=== PATIENT | male | born 1980 | race Caucasian/White ===

== ENCOUNTER 2019-11-26 11:02 | Outpatient (CLI) | payer MEDICAID, SELFPAY ==
--- NOTE | 2019-11-26 10:25 | DI.RAD_ITS ---
EXAM: XR KNEE RT 3V AP,LAT,HARPER CLINICAL HISTORY: rt knee pain. TECHNIQUE: 2D digital imaging was performed. COMPARISON: No exams were available for comparison FINDINGS: BONES: No acute fracture is present. No bony destructive lesion is seen. JOINTS: The knee is normally aligned. Moderate joint effusion. Mild degenerative changes of the righ t knee characterized by joint space narrowing and periarticular spurring. The findings are most fatou ed in the medial femoral tibial joint and the patellofemoral joint. SOFT TISSUE: Normal. IMPRESSION: Mild degenerative changes of the right knee. DATA REPOSITORY: RADIATION DOSE DELIVERED:
== END 2019-11-26 11:22 ==
PROVIDERS: PCP Family Medicine; Referring Provider Family Medicine; Visit Provider Physician Assistant Surgical
DX: M17.11 Unilateral primary osteoarthritis, right knee (principal)
CPT/HCPCS: 73562

== ENCOUNTER 2021-06-08 11:40 | Outpatient (CLI) | payer MEDICAID, SELFPAY ==
--- NOTE | 2021-06-08 11:39 | DI.RAD_ITS ---
Exam(s) XR KNEE RT 3V AP,LAT,HARPER EXAM: XR KNEE RT 3V AP,LAT,HARPER CLINICAL HISTORY: right knee pain. TECHNIQUE: 2D digital imaging was performed. COMPARISON: CR XR KNEE RT 3V AP,LAT,HARPER from 11/26/2019 FINDINGS: 3 views There is no evidence of fracture. Small amount of increased joint fluid noted. There is moderate narrowing of the medial compartment, similar to the previous study. Lateral compar tment unremarkable. Mild degenerative changes in the patellofemoral compartment medial aspect. No ominous osseous lesions evident. IMPRESSION: Moderate-advanced degenerative changes in the medial compartment unchanged from 11/26/2019 DATA REPOSITORY: RADIATION DOSE DELIVERED:
--- OUTSIDE RECORDS SUMMARY | 2021-06-08 11:43 | XMS_ITS | CCD ---
:1980 Author Care Team Providers Name Role Phone BRANDI STRATTON, Bridget Attending Physician Unavailable Christian PASCUAL MD Er Physician 1 Unavailable Bridget VARGAS MD Rounding (Secondary) Physician Unavailab le Vital Signs Vital Sign Value Unit Date/Time Recent/Initial? BP Systolic 110 mmHg 09/19/2020 17:39 Initial VS BP Diastolic 63 mmHg 09/19/2020 17:39 Initial VS Respiratory Rate 20 bpm 09/19/2020 17:39 Initial VS Heart Rate 54 bpm 09/19/2020 17:39 Initial VS O2 % BldC Oximetry 96 % 09/19/2020 17:39 Initi al VS Body Temperature 36.3 degrees 09/19/2020 17:39 Initial VS BP Systolic 105 mmHg 09/20/2020 07:44 Most Recent VS BP Diastolic 67 mmHg 09/20/2020 07:44 Most Recent VS Respiratory Rate 20 bpm 09/20/2020 07:44 Most Re cent VS Heart Rate 54 bpm 09/20/2020 07:44 Most Recent VS O2 % BldC Oximetry 97 % 09/20/2020 07:44 Most Recent VS Body Temperature 36.3 degrees 09/20/2020 07:44 Most Re cent VS Allergies Allergy Code Allergy Type Reaction Status VICODIN {Deactivated Allergy} 0 Drug allergy ITCHING Active Procedures Procedure Code Procedure Type Date CULT WOUND CULTURE [id number] SNOMED CT 09/18/2020 History of Immunizations Unknown or Not Available. Problems Unknown or Not Available. Results BASIC METABOLIC PANEL (BMP) - Collect Da te/Time: 09/20/2020 07:27 Test Name Code Test Result Test Units Test Ref Range GLUCOSE 2345-7 89 mg/dL L=70 H=11 6 BUN 3094-0 10 mg/dL L=6 H=25 CREATININE 2160-0 0.86 mg/dL L=0.67 H=1.17 SODIUM SERUM 2951-2 140 mmol/L L=136 H=14 5 POTASSIUM SERUM 2823-3 4.1 mmol/L L=3.4 H =5.2 CHLORIDE SERUM 2075-0 105 mmol/L L=96 H= 110 CARBON DIOXIDE (CO2) 2028-9 24 mmol/L L=22 H=34 ANION GAP 57121-6 11.4 mmol/L CALCIUM SERUM 81926-7 8.3 mg/dL L=8.2 H=10.2 AGE 40 years eGFR (non-Afr.Amer.) 37135-2 98 mL/min eGFR (Afr-[place]) 25394-6 119 mL/min BASIC METABOLIC PANEL (BMP) - Collect Da te/Time: 09/18/2020 20:25 Test Name Code Test Result Test Units Test Ref Range GLUCOSE 2345-7 139 mg/dL L=70 H=11 6 BUN 3094-0 12 mg/dL L=6 H=25 CREATININE 2160-0 1.00 mg/dL L=0.67 H=1.17 SODIUM SERUM 2951-2 137 mmol/L L=136 H=14 5 POTASSIUM SERUM 2823-3 4.2 mmol/L L=3.4 H =5.2 CHLORIDE SERUM 2075-0 101 mmol/L L=96 H= 110 CARBON DIOXIDE (CO2) 2028-9 27 mmol/L L=22 H=34 ANION GAP 59652-5 8.8 mmol/L CALCIUM SERUM 21861-6 9.3 mg/dL L=8.2 H=10.2 AGE 40 years eGFR (non-Afr.Amer.) 48408-8 82 mL/min eGFR (Afr-[place]) 74782-1 100 mL/min C REACTIVE PROTEIN HIGH SENSITIVITY - Co llect Date/Time: 09/18/2020 20:25 Test Name Code Test Result Test Units Test Ref Range CRP-HIGH SENS. 57402-1 137.15 mg/L L=0.00 H= 3.00 CRP-HIGH SENS 06222-9 13.72 mg/dL L=0.00 H=0 .30 CBC W/ DIFFERENTIAL - Collect Date/Time: 09/20/2020 07:27 Test Name Code Test Result Test Units Test Ref Range WBC 6690-2 9.24 th/cmm L=5.00 H=10.00 NEUT % 71.9 % L=40.0 H=80.0 LYMPH % 19.6 % L=10.0 H=50.0 MONO % 73113-7 5.7 % L=2.0 H=12.0 EOS % 1.6 % L=0.0 H=8. 0 BASO % 0.8 % L=0.0 H=3. 0 IG % 2514-8 0.4 % L=0.0 H=1. 1 NRBC % 25001-5 0.0 % L=0.0 H=0. 0 NEUT abs count 751-8 6.6 th/cmm L=1.6 H= 8.4 LYMPH abs count 731-0 1.8 th/cmm L=1.5 H =4.0 MONO abs count 742-7 0.5 th/cmm L=0.2 H= 1.0 EOS abs count 711-2 0.2 th/cmm L=0.0 H=0 .5 BASO abs count 704-7 0.1 th/cmm L=0.0 H= 0.2 IG abs count 67402-9 0.0 th/cmm L=0.0 H=0. 1 NRBC abs count 66083-3 0.0 mil/cmm L=0.0 H= 0.0 RBC 789-8 4.06 mil/cmm L=4.30 H=6.20 HEMOGLOBIN 718-7 11.3 gm/dL L=13.0 H=17.0 HEMATOCRIT 4544-3 35 % L=45 H=52 MCV 787-2 86 fL L=82 H=92 MCH 785-6 27.8 pg L=27.0 H=31.0 MCHC 786-4 32.3 % L=32.0 H=36.0 RDW-SD 788-0 41.2 fL L=39.0 H=49.0 PLATELET COUNT 777-3 317 th/cmm L=150 H= 450 CBC W/ DIFFERENTIAL - Collect Date/Time: 09/19/2020 09:06 Test Name Code Test Result Test Units Test Ref Range WBC 6690-2 16.93 th/cmm L=5.00 H=10.00 NEUT % 78.8 % L=40.0 H=80.0 LYMPH % 13.2 % L=10.0 H=50.0 MONO % 06644-3 6.4 % L=2.0 H=12.0 EOS % 0.8 % L=0.0 H=8. 0 BASO % 0.4 % L=0.0 H=3. 0 IG % 2514-8 0.4 % L=0.0 H=1. 1 NRBC % 02733-1 0.0 % L=0.0 H=0. 0 NEUT abs count 751-8 13.4 th/cmm L=1.6 H= 8.4 LYMPH abs count 731-0 2.2 th/cmm L=1.5 H =4.0 MONO abs count 742-7 1.1 th/cmm L=0.2 H= 1.0 EOS abs count 711-2 0.1 th/cmm L=0.0 H=0 .5 BASO abs count 704-7 0.1 th/cmm L=0.0 H= 0.2 IG abs count 90145-5 0.1 th/cmm L=0.0 H=0. 1 NRBC abs count 96147-5 0.0 mil/cmm L=0.0 H= 0.0 RBC 789-8 4.06 mil/cmm L=4.30 H=6.20 HEMOGLOBIN 718-7 11.5 gm/dL L=13.0 H=17.0 HEMATOCRIT 4544-3 35 % L=45 H=52 MCV 787-2 86 fL L=82 H=92 MCH 785-6 28.3 pg L=27.0 H=31.0 MCHC 786-4 33.1 % L=32.0 H=36.0 RDW-SD 788-0 41.4 fL L=39.0 H=49.0 PLATELET COUNT 777-3 315 th/cmm L=150 H= 450 CBC W/ DIFFERENTIAL - Collect Date/Time: 09/18/2020 20:25 Test Name Code Test Result Test Units Test Ref Range WBC 6690-2 19.47 th/cmm L=5.00 H=10.00 NEUT % 87.6 % L=40.0 H=80.0 LYMPH % 7.1 % L=10.0 H=50.0 MONO % 96087-6 4.0 % L=2.0 H=12.0 EOS % 0.4 % L=0.0 H=8. 0 BASO % 0.4 % L=0.0 H=3. 0 IG % 2514-8 0.5 % L=0.0 H=1. 1 NRBC % 75575-4 0.0 % L=0.0 H=0. 0 NEUT abs count 751-8 17.1 th/cmm L=1.6 H= 8.4 LYMPH abs count 731-0 1.4 th/cmm L=1.5 H =4.0 MONO abs count 742-7 0.8 th/cmm L=0.2 H= 1.0 EOS abs count 711-2 0.1 th/cmm L=0.0 H=0 .5 BASO abs count 704-7 0.1 th/cmm L=0.0 H= 0.2 IG abs count 51196-2 0.1 th/cmm L=0.0 H=0. 1 NRBC abs count 43294-7 0.0 mil/cmm L=0.0 H= 0.0 RBC 789-8 4.55 mil/cmm L=4.30 H=6.20 HEMOGLOBIN 718-7 12.7 gm/dL L=13.0 H=17.0 HEMATOCRIT 4544-3 39 % L=45 H=52 MCV 787-2 86 fL L=82 H=92 MCH 785-6 27.9 pg L=27.0 H=31.0 MCHC 786-4 32.4 % L=32.0 H=36.0 RDW-SD 788-0 42.3 fL L=39.0 H=49.0 PLATELET COUNT 777-3 405 th/cmm L=150 H= 450 SED RATE - Collect Date/Time: 09/18/2020 20:25 Test Name Code Test Result Test Units Test Ref Range SED. RATE 4537-7 22 mm/hr L=0 H=15 ANSHUL COVID RHEONIX - Collect Date/Time : 09/18/2020 22:56 Test Name Code Test Result Test Units Test Ref Range SOURCE= Nasopharyngeal N/A Tier- INPATIENT/ED N/A SARS COV2 RNA: 24036-4 NEGATIVE N/A REFERENCE RAN GE: NEGAT GRAM STAIN - Collect Date/Time: 09/19/19 23:12 Test Name Code Test Result Test Units Test Ref Range SOURCE- Other N/A WBC s few N/A PREDOMINANT ORGANISM No bacteria seen N/A Active Medications Medications Administered During Visit Medication Dose Units Frequency Route Date/Time of Last Dose ACETAMINOPHEN INJ Q6H 021 SDV: 1000MG/100ML 08:35 CLINDAMYCIN IVPB Q8H 09/21/19 21 PREMIX: 900MG/50ML 05:34 POTASSIUM CHL IN CONT 09/20/19 21 D5%-1/2NS: 23:09 20mEq/1000ML OxyCODONE TABLET no 10 MG PRN Q3H PO 08/25 apap added: 5mg 13:07 IBUPROFEN TABLET: 600 MG PRN Q6H PO 021 600MG 08:35 PANTOPRAZOLE INJ SDV: 40 MG DAILY IVP 40MG 08:35 NICOTINE INHALER 1 CARTRIDGE PRN Q2H INH 09/21/19 21 CARTRIDGE: 10MG 11:07 METHYLPHENIDATE TAB: 20 MG TID PO 08/25 20MG 13:07 CLINDAMYCIN CAPSULE: 300 MG X1 PO 08/25 150MG 13:51 Encounters Encounter Diagnosis Diagnosis Code Start Date Cutaneous abscess of right upper limb [id number] Social History Smoking Status Code Start Date End Date Current every day smoker [id number] Patient Decision Aids Patient Decision Aid Abscess Patient Portal Access Discharge Instructions You were admitted to [facility] on 09/19/2020 09:56 with a principal diagnosis of Cutaneous abscess of right upper limb You had the following tests done: BASIC METABOLIC PANEL (BMP) CBC W/ DIFFERENTIAL CBC W/ DI FFERENTIAL GRAM STAIN [facility] RHEONIX BASIC META BOLIC PANEL (BMP) C REACTIVE PROTEIN HIGH SENSITIVITY CBC W/ DIFFERE NTIAL SED RATE You were discharged from [facility] on 09/20/2020 14:03 Should you have any questions prior to d ischarge, please contact a member of your healthcare team. If you have left the ho spital and have any questions, please contact your primary care physician. Chief Complaint and Reason For Visit Chief Complaint Date of Onset RIGHT ARM ABSCESS 09/19/2020 Function Status Unknown or Not Available. Plan of Care Unknown or Not Available. Referral/Transition of Care Unknown or Not Available.
== END 2021-06-08 11:41 | disposition home or self-care (01) ==
LOC: DIORS 11:40
PROVIDERS: PCP Family Medicine; Visit Provider Student in an Organized Health Care Education/Training Program
DX: M25.561 Pain in right knee (principal); M25.461 Effusion, right knee; M17.11 Unilateral primary osteoarthritis, right knee
CPT/HCPCS: 73562

== ENCOUNTER 2021-06-22 01:42 | Outpatient (CLI) | payer MEDICAID, SELFPAY ==
--- NOTE | 2021-06-22 07:00 | DI.MRI_ITS ---
Exam(s) MR LOWER JOINT RT WO EXAM: MR LOWER JOINT RT WO CLINICAL HISTORY: PAIN M23.91 INTERNAL DERANGEMENT RT KNEE S83.411A SPRAIN M17.11 TECHNIQUE: Multiplanar multisequence MRI was performed.. COMPARISON: MR MRI R LOWER JOINT WO CONT from 04/04/2016 FINDINGS: MR examination of the knee was performed according to the usual protocol. There is a small knee joint effusion. There is a small ganglion cyst associated with the popliteus m uscle and tendon. There are areas of mildly abnormal bony signal in medial femoral condyle and medial tibial plateau, n onspecific. No other significant bony signal abnormality seen.. Medial tibiofemoral joint: The articular cartilage of the femur and tibia appears markedly thinned. The medial meniscus is deficient consistent with a chronic tear. No gross bucket-handle lesion ident ified. Grade 3 medial collateral ligament injury seen.. Lateral tibiofemoral joint: The articular cartilage of the femur and tibia appears well maintained. The meniscus and attachments appear intact. The lateral collateral ligament complex and posterolater al corner structures appear intact. There is an apparent ganglion cyst extending along the region of the popliteus myotendinous junction. Patellofemoral joint and extensor mechanism: The articular cartilage of the patellofemoral joint appe ars intact. The superior and inferior patellar fat pads appear normal with no signal abnormality. The quadriceps tendon and patellar tendon appear intact with no evidence of a tear or significant grady ma. The medial and lateral retinacula appear intact. Cruciate ligaments: There is markedly abnormal signal of the ACL with some apparent tearing present a t the femoral attachment. Findings are consistent with a partial tear. Posterior cruciate ligament is unremarkable in appearance.. Tibiofibular joint: No specific abnormality involving the tibiofibular joint. IMPRESSION: Severe degenerative changes of the medial tibiofemoral joint and presumed chronic medial meniscus tea r with marked meniscal deficiency. There is an associated grade 3 MCL injury. There is a probable partial thickness ACL tear at the femoral attachment. DATA REPOSITORY:
== END 2021-06-22 02:02 ==
PROVIDERS: PCP Family Medicine; Visit Provider Student in an Organized Health Care Education/Training Program
DX: M17.11 Unilateral primary osteoarthritis, right knee (principal); S83.411A Sprain of medial collateral ligament of right knee, initial encounter
CPT/HCPCS: 73721

== ENCOUNTER 2021-06-29 11:16 | Outpatient (CLI) | payer MEDICAID, SELFPAY ==
--- NOTE | 2021-06-29 10:15 | DI.RAD_ITS ---
Exam(s) XR STANDING ALIGNMENT EXAM: XR STANDING ALIGNMENT CLINICAL HISTORY: internal derangement R KNEE. TECHNIQUE: 2D digital imaging was performed. COMPARISON: MR MR LOWER JOINT RT WO from 06/22/2021 FINDINGS: Total four views Both hip joints appear unremarkable. At the level the knees there is asymmetric narrowing of the medial compartment of the right knee with relative preservation of height of the lateral compartment. Both medial lateral compartments of the opposite-left knee appear unremarkable. The level of the ankles there are multiple screws in the proximal left foot bones. IMPRESSION: DATA REPOSITORY: RADIATION DOSE DELIVERED:
== END 2021-06-29 11:17 | disposition home or self-care (01) ==
LOC: DIORS 11:16
PROVIDERS: Visit Provider Student in an Organized Health Care Education/Training Program
DX: M23.8X1 Other internal derangements of right knee (principal); M25.861 Other specified joint disorders, right knee
CPT/HCPCS: 77073

== ENCOUNTER 2021-07-03 18:37 | Emergency (ER) | payer MEDICAID, SELFPAY ==
[2021-07-03 18:41] VITALS: BP 129/87; PULSE 100; RESP 20; TEMP 37.2; O2SAT 100
--- NOTE | 2021-07-03 18:45 | DI.RAD_ITS ---
Exam(s) XR ELBOW RT COMPLETE EXAM: XR ELBOW RT COMPLETE CLINICAL HISTORY: Swelling, ? FB. TECHNIQUE: 2D digital imaging was performed. COMPARISON: No exams were available for comparison three views. FINDINGS: BONES: No acute fracture is present. No bony destructive lesion is seen. JOINTS: The elbow is normally aligned. No joint effusion is seen. SOFT TISSUE: Intravenous catheter noted in the antecubital fossa. 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 No visible foreign body. No abnormal gas collection. IMPRESSION: Marked soft tissue swelling. No evidence of foreign body or fracture. DATA REPOSITORY: RADIATION DOSE DELIVERED:
--- NOTE | 2021-07-03 18:45 | DI.RAD_ITS ---
Exam(s) XR HAND LT COMPLETE EXAM: XR HAND LT COMPLETE CLINICAL HISTORY: swelling, erythema, ? FB. TECHNIQUE: 2D digital imaging was performed. Three views. COMPARISON: CR LEFT WRIST COMPLETE from 10/15/2013 FINDINGS: A fixation plate is again noted along the dorsum of the wrist for carpal fusion. There is posterior soft tissue swelling. No fracture or dislocation. IMPRESSION: No acute abnormality. DATA REPOSITORY: RADIATION DOSE DELIVERED:
--- NOTE | 2021-07-03 18:52 | W.ED.GENAD ---
Discharge Plan Disposition Patient Disposition: SHEILA ABDUL ([facility]) Condition: Serious Discharge Details Clinical Impression: Cellulitis of finger of left hand, Abscess of right elbow, Sepsis Primary Care Provider: None,None ED Provider: Branden Marino Home Meds and New Rx's Prescriptions: No Action acetaminophen [Mapap Extra Strength] 500 MG tablet 1,000 mg PO PRN PRN0RF ibuprofen 200 MG tablet 400 mg PO PRN PRN0RF methylphenidate HCl 20 MG tablet extended release 20 mg PO TID 0RF Medical Decision Making This is a 41-year-old male who presents with swelling and erythema of his left hand, predominantly over the long finger, as well as the right elbow. 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 He does have a history of previous drug use but denies to me skin popping or any needle use. States he is no longer using illicit drugs. On exam patient has a pulse of 100 but is afebrile and with normal blood pressure. He has an area of fluctuance overlying the proximal right forearm just distal to his elbow and fairly impressive erythema and swelling of the left hand, most focused on the long finger which is fusiformly swollen and tender with passive range of motion. Dr. Marino's documentation: 8:15 PM Patient was signed out to me by Dr. Daren Zamarripa, please refer to his HPI, physical exam assessment and plan. At time of signout we were waiting on labs and imaging. Immediately after signout I did go and assessed the patient myself, exam demonstrates notably discolored middle finger, with erythema over the dorsal surface, which seems to extend proximally all the way up the arm following a vascular pattern. No erythema on the palmar surface of the hand. Middle finger on the left hand demonstrates fusiform swelling throughout, notable discoloration with a combination of erythema, intermittent pallor, and some aspects that are violaceous in color. Finger is notably tender to both passive flexion and extension, it seems to be pretty equivalent for both directions. I am able to extend the finger by about 5 degrees before the pain becomes intolerable. Well there is certainly concerning components for an extensor tenosynovitis, as well as a flexor tenosynovitis, I feel that extensor may be a little bit more likely however it seems to be notably pronounced with the extension of his arm. We will immediately start antibiotics of vancomycin and ceftriaxone, pain medications, we will reach out to orthopedics for potential admission and surgical management. Unfortunately we have no current beds available at this time. 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 9:17 PM Contacted [facility] and they have no beds available at this time. They recommend transfer to [facility]. Did speak with orthopedics, Dr. Ley, and after discussion of the case he recommends transfer to the [facility] for evaluation in the emergency department for discussion of potential immediate surgical intervention versus just observation. 9:45 PM Discussed the case with emergency physician Dr. Marco Tovar, he agrees with the assessment and plan. Patient will be transferred to the [facility] ED for evaluation as soon as transportation team is available. In the meantime I did perform an incision and drainage of the patient's right elbow. The area was anesthetized and cleaned, it was incised with an 11 blade scalpel, 10 to 15 cc of purulent material was easily removed after initial incision. It was then packed with iodoform gauze. Patient tolerated this well. Patient's tetanus was updated in 2018. Repeat assessment continues to show pain in the middle finger on the left hand. Sensation remains intact though. And still very concerned about the finger, do feel that it still requires emergent orthopedic evaluation for potential surgical intervention if indicated. I have extensively reviewed the treatment plan with the patient. I have addressed all patient concerns at this time. I have also discussed the plan with the admitting physician and they agree with the current assessment and plan and have agreed to assume responsibility for the patient. All parties demonstrate verbal understanding and agreement with our assessment and plan at this time. The documentation in this chart was dictated using Riidr dictation software. Please excuse any dictation errors. At time of transfer the patient was reassessed and continued to demonstrate current medical stability. No signs of acute respiratory distress requiring intubation, hemodynamic instability requiring pressor support, or rapidly declining mental status. The patient is stable for transport. FINDINGS: Bones/joints: No acute fracture or subluxation. No focal osseous erosion. Soft tissues: Swelling posterior and medial to the elbow with no joint effusion. No radiopaque foreign body. IMPRESSION: Swelling posterior and medial to the elbow with no joint effusion. No radiopaque foreign body. Thank you for allowing us to participate in the care of your patient. Dictated and Authenticated by: Sandra Ruiz MD 07/03/2021 8:36 PM Eastern Time ([place]) FINDINGS: Bones/joints: Plate and screw fixation the distal radius extending across the radial carpal bones and across the 3rd metacarpal with chronic appearing ankylosis. Hardware is intact. No acute fracture or subluxation. No focal osseous erosion. Soft tissues: Generalized soft tissue swelling. IMPRESSION: 1. No acute bony pathology. 2. Generalized soft tissue swelling. Thank you for allowing us to participate in the care of your patient. Dictated and Authenticated by: Sandra Ruiz MD 07/03/2021 8:35 PM Eastern Time ([place]) HPI General Mode of arrival: ambulatory. Date/Time Provider Initiated Documentation: 07/03/21 18:37. Limitations to Documentation: no limitations. Information obtained by: patient. 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 Patient reports no radiation. Patient started experiencing this day(s) and it has been constant. improves with No relieving factors improve symptom(s), No exacerbating factors reported . Patient notes denies fever/chills. Patient did receive the following treatments prior to arrival, none Related Data Home Medications Medication Instructions Recorded Confirmed acetaminophen 500 mg tablet (Mapap 1,000 mg PO PRN PRN 09/29/13 06/29/21 Extra Strength) ibuprofen 200 mg tablet 400 mg PO PRN PRN 09/29/13 06/29/21 methylphenidate HCl 20 mg 20 mg PO TID 02/15/16 06/29/21 tablet,extended release Allergies Allergy/AdvReac Type Severity Reaction Status Date / Time oxycodone [From Percocet] AdvReac Intermediate Itching Unverified 06/29/21 09:59 General Stated Complaint: Cellulitis SILVIA: 3 Review of Systems Narrative: No fevers. Denies to me using drugs. 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 8 systems reviewed and otherwise negative PFSH All Active Problems (Updated 07/03/21 @ 22:25 by Branden R Descanso, DO) Cellulitis of finger of left hand (Acute) Abscess of right elbow (Acute) Sepsis (Acute) Right knee DJD (Acute) History of Surgical Procedure (Chronic) a. Left foot surgery. b. Open reduction and internal fixation of calcaneus and forefoot due to crush injury. c. Previous left wrist fusion. Abscess of right upper arm and forearm (Acute) Medical History MCL sprain of right knee Pain in left wrist Social History Smoking/Tobacco Use Status: Never Smoking risk assessment performed?: Yes Alcohol Intake: current Alcohol Intake frequency: a few times a week Alcohol type: beer Drug use: Never Substance use type: crack/cocaine Current gender identity: male Do you feel safe at home: Yes Do you feel safe in your relationship?: Yes Exam Narrative Exam Narrative: GEN: awake, alert, oriented 3. Pleasant, well groomed, interactive. HEAD: Normocephalic, atraumatic ENT: Mucous membranes moist, oropharynx unremarkable, External ear exam unremarkable EYES: PERRL, EOMI NECK: Full ROM, no GABY, no menigismus CHEST/RESP: Nontender, clear to auscultation bilateral, no wheeze/rhonchi/rales CARDIOVASCULAR: RRR, no murmur, rub bryn. 2+ Rad pulse bilateral ABDOMEN: Soft, nontender, no mass. +Bowel sounds EXT: Full ROM, the left long finger is fusiformly swollen with blistering on the dorsal aspect. There is pain with passive movement of the finger. The right forearm proximally has an area of swelling and fluctuance measuring approximately 3 x 4 cm. 2+ radial pulse bilaterally. The left forearm has a lymphangitic streak present. Patient's skin throughout the upper extremity notes healed areas where he has been picking at scabs. Neuro: Grossly normal neurologic exam, conversant, interactive. Psych: Speech fluent, thoughts congruent, affect normal Course Vital Signs Vital signs: Vital Signs Temperature 37.2 C 07/03/21 18:41 Pulse 100 H 07/03/21 18:41 Respiratory Rate 20 07/03/21 18:41 Blood Pressure 129/87 07/03/21 18:41 Pulse Oximetry 100 07/03/21 18:41 Temperature 37.2 C 07/03/21 18:41 Temperature Source Temporal Artery Scan 07/03/21 18:41 Pulse 100 H 07/03/21 18:41 Respiratory Rate 20 07/03/21 18:41 Blood Pressure 129/87 07/03/21 18:41 Blood Pressure Position Sitting 07/03/21 18:41 Pulse Oximetry 100 07/03/21 18:41 Oxygen Delivery Method Room Air 07/03/21 18:41 Oxygen Flow Rate 0 07/03/21 18:41 Pain Level 8 07/03/21 18:41 Procedures Abscess I/D Site: Upper Extremity Side (if applicable): Right (Elbow) Local Anesthetic: Lidocaine 2% Amount of anesthesia used (mL): 3 Technique: Incised with #11 Blade Amount of fluid expressed (mL): 15 Irrigation: Yes Packing used?: Iodoform Sign Out Sign Out Data: Sign Out Comment: R elbow and L hand abscess. Labs, XR pending Last updated by Daren Zamarripa MD at 07/03/21 19:36
[2021-07-03] MEDS: Ketorolac 15 MG/ML VIAL IVP (19:57)
[2021-07-03] MEDS: Normal Saline 1,000 ML 125 ML IV (19:57)
[2021-07-03 19:58] LABS: Abs Immature Grans 0.11 10^3/uL (0.0-0.06); Absolute Eosinophil Count 0.02 10^3/uL (0.0-0.7); Absolute Lymphocyte Count 1.15 10^3/uL (1.2-3.4); Basophils % 0.2; Eosinophils % 0.1; HCT 37.6 % (40.0-50.0); Immature Grans % 0.5; Lymphocytes % 5.2; MCH 27.1 pg (27.0-33.0); MCHC 31.9 % (32.0-36.0); MCV 84.9 fL (80-95); MPV 9.8 fL (8.0-11.0); Monocytes % 6.8; Neutrophils % 87.2; Nucleated RBC 0 %; Platelet Count 405 10^3/uL (130-400); RBC 4.43 10^6/uL (4.36-5.78); RDW 13.6 % (11.8-14.1); RDW-SD 42.4 fL; WBC 22.04 10^3/uL (4.4-10.8)
[2021-07-03 19:59] LABS: Lactate 1.9 mmol/L (0.6-1.4)
[2021-07-03 20:00] LABS: Absolute Basophil Count 0.04 10^3/uL (0.0-0.2); Absolute Neutrophil Count 19.22 10^3/uL (1.2-6.7)
[2021-07-03 20:14] LABS: ALT 26 U/L (16-63); AST 20 U/L (15-37); Alkaline Phosphatase 119 U/L (46-116); Anion Gap 12.7 mmol/L (3-11); BUN 15 mg/dL (7-18); Bilirubin, Total 0.3 mg/dL (0.2-1.0); CO2 25.3 mmol/L (21.0-32.0); CREATININE 0.9 mg/dL (0.70-1.30); Calcium 8.7 mg/dL (8.5-10.1); Chloride 98 mmol/L (98-107); Glucose 117 mg/dL (74-106); Potassium 3.4 mmol/L (3.5-5.1); Sodium 136 mmol/L (136-145); Total Protein 7.7 g/dL (6.4-8.2)
[2021-07-03] MEDS: cefTRIAXone 2 GM/50 ML BAG IVPB (20:28)
[2021-07-03] MEDS: HYDROmorphone 2 MG/ML VIAL 1 MG IVP ×2 (20:29→21:45)
--- NOTE | 2021-07-03 20:36 | DI.VRAD_ITS ---
PROCEDURE INFORMATION: Exam: XR Left Hand Exam date and time: 07/03/2021 20:06 Age: 41 years old Clinical indication: Other: Swelling erythema ? fb TECHNIQUE: Imaging protocol: XR Left hand. Views: 3 or more views. COMPARISON: SOFT TISSUE EXT US LIMITED 12/21/2015 12:52 FINDINGS: Bones/joints: Plate and screw fixation the distal radius extending across the radial carpal bones and across the 3rd metacarpal with chronic appearing ankylosis. Hardware is intact. No acute fracture or subluxation. No focal osseous erosion. Soft tissues: Generalized soft tissue swelling. IMPRESSION: 1. No acute bony pathology. 2. Generalized soft tissue swelling. Dictated and Authenticated by: Sandra Ruiz MD. Ordering:JACK Mercedes MD
--- NOTE | 2021-07-03 20:36 | DI.VRAD_ITS ---
PROCEDURE INFORMATION: Exam: XR Right Elbow Exam date and time: 07/03/2021 20:05 Age: 41 years old Clinical indication: Other: Swelling, ? fb TECHNIQUE: Imaging protocol: XR Right elbow. Views: 3 or more views. COMPARISON: CT RT.UPPER EXTREMITY WO CONTRAST 01/10/2016 22:18 FINDINGS: Bones/joints: No acute fracture or subluxation. No focal osseous erosion. Soft tissues: Swelling posterior and medial to the elbow with no joint effusion. No radiopaque foreign body. IMPRESSION: Swelling posterior and medial to the elbow with no joint effusion. No radiopaque foreign body. Dictated and Authenticated by: Sandra Ruiz MD. Ordering:JACK Mercedes MD
[2021-07-03] MEDS: VANCOMYCIN 1,500 MG in Normal Saline 500 ML 333.3333 MG IVPB (21:01)
[2021-07-03 21:29] LABS: Source Nasal/Nares
[2021-07-03 21:39] VITALS: BP 122/74; PULSE 84; RESP 18; O2SAT 97
[2021-07-03] MEDS: Lidocaine/Epinephri/Tetracaine Topical Gel 3 ML TP (21:45)
[2021-07-03 22:06] LABS: COVID-19 PCR Negative (Negative)
[2021-07-03] MEDS: HYDROmorphone 2 MG/ML VIAL IVP (22:25)
[2021-07-03 22:30] VITALS: BP 123/70; PULSE 82; RESP 18; O2SAT 98
== END 2021-07-03 23:05 | disposition short-term general hospital (02) ==
PROVIDERS: Emergency Medicine; Emergency Provider Student in an Organized Health Care Education/Training Program
DX: L03.012 Cellulitis of left finger (principal); L02.413 Cutaneous abscess of right upper limb; A41.9 Sepsis, unspecified organism
CPT/HCPCS: 10061; 36415; 80053; 87040; 87635; 96361; 96365; 96366; 96367; 96375; 96376; 99283; 99285; 73080; 73130; 83605; 85025; J1885

== ENCOUNTER 2021-07-26 01:39 | Outpatient (CLI) | payer MEDICAID, SELFPAY ==
[2021-07-26 12:18] LABS: Source Nasal/Nares
[2021-07-26 13:07] LABS: Abs Immature Grans 0.01 10^3/uL (0.0-0.06); Absolute Basophil Count 0.05 10^3/uL (0.0-0.2); Absolute Eosinophil Count 0.12 10^3/uL (0.0-0.7); Absolute Lymphocyte Count 1.65 10^3/uL (1.2-3.4); Absolute Monocyte Count 0.33 10^3/uL (0.1-0.8); Absolute Neutrophil Count 2.48 10^3/uL (1.2-6.7); Basophils % 1.1; Eosinophils % 2.6; HCT 36.3 % (40.0-50.0); HGB 11.2 g/dL (13.5-17.5); Immature Grans % 0.2; Lymphocytes % 35.6; MCH 26.7 pg (27.0-33.0); MCHC 30.9 % (32.0-36.0); MCV 87 fL (80-95); MPV 9.7 fL (8.0-11.0); Monocytes % 7.1; Neutrophils % 53.4; Platelet Count 359 10^3/uL (130-400); RBC 4.19 10^6/uL (4.36-5.78); RDW-SD 44.4 fL; WBC 4.64 10^3/uL (4.4-10.8)
[2021-07-26 13:08] LABS: ESR 8 mm/hr (0-15)
[2021-07-26 14:23] LABS: C-Reactive Protein 1.09 mg/dL (0.0-0.3)
[2021-07-26 15:12] LABS: COVID-19 PCR Negative (Negative)
== END 2021-07-26 01:40 | disposition home or self-care (01) ==
LOC: LBO 01:39
PROVIDERS: Visit Provider Student in an Organized Health Care Education/Training Program
DX: L03.012 Cellulitis of left finger (principal); Z20.822 Contact with and (suspected) exposure to COVID-19; Z01.818 Encounter for other preprocedural examination
CPT/HCPCS: 36415; 85652; 87635; 85025; 86140

== ENCOUNTER 2021-07-26 11:56 | Outpatient (CLI) | payer MEDICAID, SELFPAY ==
--- NOTE | 2021-07-26 11:30 | DI.RAD_ITS ---
Exam(s) XR FINGER LT MIDDLE EXAM: XR FINGER LT MIDDLE CLINICAL HISTORY: finger sewlling. TECHNIQUE: 2D digital imaging was performed. COMPARISON: CR,XR XR HAND LT COMPLETE from 07/03/2021 FINDINGS: Two views There is a flexion deformity at the level of the IP joint of the 3rd-middle finger. On the AP view there is abnormal cortical irregularity off the medial aspect of the head of the middl e phalanx. This may represent osteomyelitis.. In the lateral view there is also loss of cortex and bone density in the proximal aspect of the distal phalanx. This is also suspicious for osteomyelitis . There is no radiopaque foreign body. IMPRESSION: Abnormal findings as above in the head of the middle phalanx and proximal distal phalanx, suspicious for osteomyelitis.. Report stat DATA REPOSITORY: RADIATION DOSE DELIVERED:
== END 2021-07-26 11:57 | disposition home or self-care (01) ==
LOC: DIORS 11:57
PROVIDERS: Visit Provider Physician Assistant
DX: L03.012 Cellulitis of left finger (principal); M86.142 Other acute osteomyelitis, left hand; M79.89 Other specified soft tissue disorders
CPT/HCPCS: 73140

== ENCOUNTER 2021-07-28 06:13 | Day surgery (SDC) | payer MEDICAID, SELFPAY ==
[2021-07-28] VITALS (13 sets, daily range): BP systolic 73–128; BP diastolic 44–78; PULSE 57–79; RESP 12–20; TEMP 36.2–36.8; O2SAT 97–100; BMI 21.7
--- NOTE | 2021-07-28 06:14 | W.ANESPRE ---
General Info Date of Service Date Performed: 07/28/21 Height: 5 ft 11 in Weight: 70.76 kg Body Mass Index (BMI): 21.7 Surgical Procedure: Operation Date: 07/28/21 07:40 Proposed Procedure Side Surgeon p Irrigation & Debridement Long Finger Left Parish Gonzalez MD s Possible Tendon Repair LT Long Finger Left Parish Gonzalez MD Meds Allergies and Home Medications Allergies Allergy/AdvReac Type Severity Reaction Status Date / Time oxycodone [From Percocet] AdvReac Intermediate Itching Verified 07/28/21 06:27 Home Medication Medication Instructions Recorded acetaminophen 500 mg tablet (Mapap 1,000 mg PO PRN PRN 09/29/13 Extra Strength) ibuprofen 200 mg tablet 400 mg PO PRN PRN 09/29/13 methylphenidate HCl 20 mg 20 mg PO TID 02/15/16 tablet,extended release Current Visit Medications: Current Medications Generic Name Dose Route Start Last Admin Trade Name Freq PRN Reason Stop Dose Admin Ringer's Solution 1,000 mls @ 30 mls/hr 07/28/21 06:00 IV 08/26/21 23:59 INFUSION CHANTAL IV Miscellaneous Supplies 1 each 07/28/21 06:00 Iv Access IV 08/26/21 23:59 DIRECTED CHANTAL Sodium Chloride 0 ml 07/28/21 06:00 Normal Saline Flush 10 Ml Syr IV 08/26/21 23:59 PRN PRN Sodium Chloride 0 ml 07/28/21 06:00 Normal Saline 10 Ml Vial IJ 08/26/21 23:59 DIRECTED PRN Sterile Water 0 ml 07/28/21 06:00 Water,Injection,Sterile 10 Ml Vial IJ 08/26/21 23:59 DIRECTED PRN PFSH Active Problems Active Problems: Problem Status Onset Code Extensor tendon disruption M67.89 History of Surgical Procedure Z98.89 Abscess of right upper arm and forearm L02.413 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 MCL sprain of right knee Pain in left wrist Tobacco Smoking/Tobacco Use Status: Never Alcohol Alcohol Intake: current Alcohol intake frequency: a few times a week Alcohol type: beer Substance Use Substance use: Never Substance use type: crack/cocaine Vital Signs and Lab Results Lab Results Blood Type / Crossmatch: No Data to Display Complete Blood Count: White Blood Count 4.64 10^3/uL (4.4-10.8) 07/26/21 12:52 07/26/21 Red Blood Count 4.19 10^6/uL (4.36-5.78) L 07/26/21 12:52 07/26/21 Hemoglobin 11.2 g/dL (13.5-17.5) L 07/26/21 12:52 07/26/21 Hematocrit 36.3 % (40.0-50.0) L 07/26/21 12:07/26/21 Platelet Count 359 10^3/uL (130-400) 07/26/21 12:07/26/21 Venous Blood Lactate 1.9 mmol/L (0.6-1.4) H 07/03/21 19:07/03/21 Complete Metabolic Panel: Sodium Level 136 mmol/L (136-145) 07/03/21 19:55 07/03/21 Potassium Level 3.4 mmol/L (3.5-5.1) L 07/03/21 19:07/03/21 Chloride Level 98 mmol/L (98-107) 07/03/21 19:07/03/21 Carbon Dioxide Level 25.3 mmol/L (21.0-32.0) 07/03/21 19:07/03/21 Blood Urea Nitrogen 15 mg/dL (7-18) 07/03/21 19:07/03/21 Creatinine 0.9 mg/dL (0.70-1.30) 07/03/21 19:07/03/21 Estimated GFR/1.73 m2 >= 60.00 (mL/min/1.73m2) 07/03/21 19:07/03/21 Calcium Level 8.7 mg/dL (8.5-10.1) 07/03/21 19:55 07/03/21 Albumin 3.0 g/dL (3.4-5.0) L 07/03/21 19:07/03/21 Glucose Level 117 mg/dL (74-106) H 07/03/21 19:55 07/03/21 C-Reactive Protein 1.09 mg/dL (0.0-0.3) H 07/26/21 12:52 07/26/21 Liver Function Panel: Alanine Aminotransferase (ALT/SGPT) 26 U/L (16-63) 07/03/21 19:55 07/03/21 Aspartate Amino Transf (AST/SGOT) 20 U/L (15-37) 07/03/21 19:55 07/03/21 Coagulation Panel: No Data to Display Cardiac Panel: No Data to Display Arterial Blood Gas: No Data to Display Venous Blood Gas: No Data to Display Pancreas Panel: No Data to Display Thyroid Panel: No Data to Display Infectious Disease: Coronavirus (COVID-19)(PCR) Negative (Negative) 07/26/21 12:05 07/26/21 Coronavirus 2019 Source Nasal/Nares 07/26/21 12:05 07/26/21 Blood Cultures: No Data to Display Toxicology Panel: No Data to Display Anesthesia Assessment and Plan Anesthesia History Personal History: No History of Anesthesia Complications Family History: No Family History of Anesthesia Complications Exercise Tolerance Exercise Tolerance: Metabolic Equivalents>4 Cardiac & Pulmonary Exam Cardiac Exam: Normal S1/S2 Heart Sounds Pulmonary Exam: Clear Bilateral Breath Sounds Implantable Cardiac Device Does patient have a Pacemaker or an ICD?: No Airway Exam Known Difficult Airway: No Mallampati Class: 1 Mouth Opening: Normal (> 3cm) Thyromental Distance: Greater than 3 cm Neck Range of Motion: Full ROM Neck Circumference: Normal Teeth Condition: Normal Dentition ASA Classification ASA Score: ASA 2 Emergency Case?: No NPO Status NPO Status: NPO Clears >2 hours, Solids >8 hours Anesthesia Plan Resuscitation Status: Full Code Anesthesia Technique: General Anesthesia Airway Planned: LMA Monitors Used: Standard Monitors Preoperative Comments:: 41 yo male for left hand cellulitis. Sig PMHx: cocaine use, ADHD, anxiety, chronic pain. Previous Anes: LMA 5, LMA 4, mac 4 grade 1, easy mask - all without apparent issues.
[2021-07-28] MEDS: Lactated Ringers 1,000 ML 30 ML IV (07:14)
--- NOTE | 2021-07-28 08:00 | W.PM.OP ---
Date of service: 07/28/21 Time of Service: 07:30 Operative Note Operative Note DATE OF PROCEDURE: 07/28/21 PRE-OP DIAGNOSIS: Left long finger 1. Septic DIP Joint 2. Extensor tendon rupture 3. Flexor tenosynovitis POST-OP DIAGNOSIS: same PROCEDURE: Left long finger 1. DIP Joint arthrotomy with irrigation and debridement, CPT# 05907 2. Extensor tendon I&D 3. Distal extensor tendon open repair, CPT# 80659 3. Flexor tendon sheath I&D, CPT# 23232 SURGEON: Parish Gonzalez [employer] TENDER: Elisabet Jorge ANESTHESIA TYPE: Local By Surgeon and General LMA/ETT Refer to Anesthesia Record PATHOLOGY: other (Wound cultures x2) Patient was transported to: PACU Patient's condition: stable Indications: Please see complete medical record for details. Findings: Partially healed dorsal longitudinal wound. Soft tissue loss over middle phalanx included skin, subcutaneous tissue, and extensor tendon rupture from the distal phalanx consistent with mallet finger. Significant scarring from prior severe infection. No obvious purulence dorsally, flexor tendon sheath, or DIP joint. DIP joint with erosions from prior septic joint and bone and cartilage loss. Procedure Description: In the operating room, general anesthesia was induced. The patient was positioned [supine] on the operating room table. All bony prominences were well-padded. Preoperative antibiotics were held for cultures. The left hand was prepped and draped in the usual sterile fashion with retained long finger dorsal nylon sutures removed. The correct patient, procedure, and side of the procedure were all verified prior to incision. The prior longitudinal long finger dorsal incision was easily reopened with snaps. There was no obvious purulence. Cultures were obtained from this extensor compartment. There was scarring that partially healing tissue as well as some nonviable skin, subcutaneous tissue, and tendon, which was debrided using various hand instruments. The middle phalanx was readily visible distal to the central slip. The extensor tendon had clearly ruptured from infection and/or trauma from the distal phalanx. A new incision was made distally over the DIP joint extended longitudinally. This incision was carried deeply in all arthrotomy was created to access the DIP joint. There was no appearance here and additional cultures were obtained. Vancomycin antibiotics were then administered given history of MRSA. The DIP joint was debrided of bone and cartilage that appeared nonviable and some subcutaneous tissue. Small flaps were raised medially laterally from the prior extensor incision to free up scar tissue confirm no additional pockets of infection. The incision was carried along bone in volarly at the middle phalanx accessing the flexor tendon sheath and flexor compartments. There is no purulence here either. Irrigation was delivered into the flexor tendon sheath and then withdrawn a few times to ensure thoroughness. The DIP joint was then inspected with relation to the available extensor tendon tissue. The joint can be held in the neutral full extension position. There was about 60% tissue that could be reapproximated after releasing along the ulnar margin. There was no viable tissue on the radial 40% likely lost due to infection and prior surgeries. 3-0 FiberWire's passed through the dorsal aspect of the distal phalanx tendon origin periosteum and bone with good fixation strength before secured it to the remnant tissue of the extensor tendon. This was repeated with the finger held in the correct position. After repair the DIP joint remained in extension without any rotatory or angular deformity. The decision was made to omit any K wire pinning fixation at this time. All wounds were copiously irrigated normal saline. The subcutaneous tissue was closed using 3-0 Monocryl in a buried fashion. The skin was closed with 4-0 Monocryl in a running baseball stitch. Xeroform was applied over the incision and complex wound over the middle phalanx had been reasonably well approximated and largely closed. 4 4 gauze was wrapped over the digit as well as between the fingers. A piece of aluminum foam was placed under the middle and distal phalanx maintaining the D IP joint in full extension. Everything was secured with an Meng wrap gentle compression. The patient awoke from anesthesia without complication and was transferred to the recovery room in a stable condition.
[2021-07-28] MEDS: Lidocaine 1% Multi-Dose W/EPI 1/100,000 50 ML VIAL (08:26)
[2021-07-28] MEDS: Sodium Bicarbonate 50 MEQ/50 ML VIAL (08:26)
--- NOTE | 2021-07-28 09:04 | PDOC.DSDIS_ITS ---
Discharge Plan Disposition Patient Disposition: HOME Condition: Stable Discharge Details Reason For Visit: Left long finger surgery Attending Provider: Parish Gonzalez Primary Care Provider: Unknown,Unknown Home Meds and New Rx's Prescriptions: New oxycodone 5 mg tablet 5 - 10 mg PO Q4H MDD 30 mg PRN (Reason: moderate to severe pain) Qty: 12 0RF naproxen 250 mg tablet 250 - 500 mg PO BID PRNQty: 40 0RF Rx Instructions: take with a meal amoxicillin-pot clavulanate [Augmentin] 500-125 mg tablet 1 tab PO TID 14 Days Qty: 42 0RF doxycycline hyclate 100 mg tablet 100 mg PO BID 14 Days Qty: 28 0RF Continued acetaminophen [Mapap Extra Strength] 500 MG tablet 1,000 mg PO PRN PRN0RF methylphenidate HCl 20 MG tablet extended release 20 mg PO TID 0RF Discontinued ibuprofen 200 MG tablet 400 mg PO PRN PRN0RF Discharge Instructions Additional Instructions: Surgery: Left hand long finger I&D and extensor tendon repair Activity: Non-weightbearing in splint at all times. Keep the long finger DIP joint straight at all times for 6 weeks. Prescriptions: Amoxicillin?clavulanate 500-125 mg take 1 tablet 3 times each day for 14 days Doxycycline 100 mg take 1 tablet 2 times each day for 14 days Naproxen 250 mg take 1-2 every 12 hours with a meal as needed for moderate pain Oxycodone 5 mg take 1-2 every 4-6 hours as needed for severe pain (Benadryl/diphenhydramine may be used for itchiness) You may use rebx-miy-migjaiv Tylenol (acetaminophen) as needed for mild pain. A daily probiotic and/or yogurt is recommended while on antibiotics Dressings: Leave splint and dressing in place until follow-up. Keep clean and dry at all times. Follow-up: 10-[address] Gonzalez Let us know right away if you develop any redness, drainage, fevers, chest pain, or trouble breathing. Do not drink alcohol or drive for at least 24 hours after anesthesia. Please call the office during business hours with any questions or concerns. Referrals: Parish Gonzalez MD [ [facility] STAFF PHYSICIAN] - Discharge Orders Discharge Orders: Discharge Order (Routine); Ordered 07/28/21 Ordered By: Parish Gonzalez DS: Diagnosis Discharge Diagnosis (1) Septic arthritis of interphalangeal joint of finger of left hand: Status: Acute
[2021-07-28] MEDS: fentaNYL 100 MCG/2 ML VIAL IVP ×2 (09:05→09:21)
--- NOTE | 2021-07-28 10:22 | W.ANESVAS ---
Midline Placement Date Performed: 07/28/21 Procedure Time: 10:15 Requesting Provider: Santos Lynne Procedure Location: PACU Sedation Given (Indicate Dose Given): No Sedation given Patient Mental Status: Awake Sterility: Hand Hygiene, Surgical Cap, Surgical Mask and Alcohol Laterality: Left Insertion Site: Brachial Midline Device: PowerGlide Pro 20G Catheter Length: 10 cm Midline Procedure Procedure: 1% Lidocaine to skin and subcutaneous tissue with 25g needle, Vessel accessed with needle, Vessel accessed with catheter over needle, Guidewire placed with ease and Catheter placed without resistance Dressing: Tegaderm Applied and Statlock Applied Blood Return: Present Flushes: Easily Ultrasound: Sterile probe cover and gel used Ultrasound Image Saved?: No Number of Attempts (See previous attempts in note section): 2 Procedure Tolerated: No Complications Procedure Outcome: Successful Procedure Comment:: first attempt to same vessel, but more distal. Performed By: Santos Lynne
--- NOTE | 2021-07-28 10:34 | PDOC.ANES ---
Date of service: 07/28/21 Time of Service: 10:34 Anesthesia Note Report Anesthesia Note: Vanco infiltration to right arm IV, unclear as to how much. IV aspirated from with no blood/fluid return, and hot compress with elevation was done. IV was removed and hyaluronidase 15 units/10 mL injected in 5 different sites. pt made aware of risks of infiltration and to call us to present to the ED with concerns.
[2021-07-28] MEDS: HYDROmorphone 2 MG/ML VIAL IVP (10:40)
--- NOTE | 2021-07-28 11:43 | W.ANESPOSTOP ---
Postoperative Evaluation Date, Time and Location Date Performed: 07/28/21 Time Performed: 11:43 Patient Location: Day Surgery Unit Vital Signs Most Recent Imported Vital Signs: Most Recent Vital Signs Temp Pulse Resp BP Pulse Ox 36.8 C 61 16 105/63 99 07/28/21 11:00 07/28/21 11:00 07/28/21 11:00 07/28/21 11:00 07/28/21 11:00 Pain Score Most Recent Pain Score: Most Recent Pain Score Pain Level 6 07/28/21 10:45 Assessment Mental Status: Awake (Alert & Oriented to Patient Baseline) Airway and Respiratory Function: Patent airway with normal (patient baseline) respiratory exam Cardiovascular Function: Hemodynamically Stable Hydration Status: Adequately Hydrated Nausea & Vomiting: No Nausea or Vomiting Pain: Pt. Denies Any Pain Peripheral Nerve Block: Patient did not receive a nerve block Postoperative Comments:: Discussed s/s necrosis/ischemia of skin/tissue from his IV infiltration. told to return to the ED with any concerns.
== END 2021-07-28 11:50 | disposition home or self-care (01) ==
PROVIDERS: Visit Provider Student in an Organized Health Care Education/Training Program
PROC: (CPT 26020; principal; 2021-07-28 07:30)
DX: M00.9 Pyogenic arthritis, unspecified (principal); M65.842 Other synovitis and tenosynovitis, left hand; S66.313A Strain of extensor muscle, fascia and tendon of left middle finger at wrist and hand level, initial encounter; X58.XXXA Exposure to other specified factors, initial encounter
CPT/HCPCS: 26020; 26080; 26433; 87070; 87075; 87205; J1100; J2405; J2704; J3010

== ENCOUNTER 2024-04-14 14:07 | Outpatient (REF) | payer MEDICAID, SELFPAY ==
[2024-04-14 16:36] LABS: *AMPHETAMINES SCREEN URINE Negative (Negative); *BARBITURATES SCREEN URINE Negative (Negative); *BENZODIAZEPINES SCREEN URINE Negative (Negative); Cannabinoids THC Negative (Negative); Cocaine Screen,Urine Positive (Negative); METHADONE URINE SCREEN Negative (Negative); OPIATES URINE SCREEN Negative (Negative)
[2024-04-14 16:41] LABS: Tricyclic Antidepressants Negative (Negative)
[2024-04-18 09:27] LABS: Buprenorphine 36.4 ng/mL (Cutoff: 5.0); Norbuprenorphine 227.4 ng/mL (Cutoff: 2.5)
[2024-04-28 09:56] LABS: Naloxone Confirmation Total Ur 84 ng/mL
== END 2024-04-14 14:08 | disposition home or self-care (01) ==
LOC: LBN 14:07
PROVIDERS: Visit Provider Emergency Medicine
DX: Z79.891 Long term (current) use of opiate analgesic (principal); F11.20 Opioid dependence, uncomplicated
CPT/HCPCS: 80307; 80348

== ENCOUNTER 2024-12-02 18:31 | Outpatient (REF) | payer MEDICAID, SELFPAY ==
[2024-12-02 16:41] LABS: Cannabinoids THC Negative (Negative); METHADONE URINE SCREEN Negative (Negative)
== END 2024-12-02 18:32 | disposition home or self-care (01) ==
LOC: LBN 18:31
PROVIDERS: Visit Provider Nurse Practitioner Adult Health
DX: F11.90 Opioid use, unspecified, uncomplicated (principal); F90.9 Attention-deficit hyperactivity disorder, unspecified type
CPT/HCPCS: 80307; 80360

== ENCOUNTER 2025-01-05 15:12 | Outpatient (REF) | payer MEDICAID, SELFPAY ==
[2025-01-05 16:54] LABS: Cannabinoids THC Negative (Negative); METHADONE URINE SCREEN Negative (Negative)
== END 2025-01-05 15:13 | disposition home or self-care (01) ==
LOC: LBN 15:12
PROVIDERS: Visit Provider Nurse Practitioner Adult Health
DX: F11.90 Opioid use, unspecified, uncomplicated (principal); F90.9 Attention-deficit hyperactivity disorder, unspecified type; R76.89 Other specified abnormal immunological findings in serum
CPT/HCPCS: 80307; 80348; 80360

== ENCOUNTER 2025-01-26 11:50 | Outpatient (REF) | payer MEDICAID, SELFPAY ==
[2025-01-26 18:10] LABS: Creatinine,Urine 111.26 mg/dL
[2025-01-26 18:17] LABS: Cannabinoids THC Positive (Negative)
== END 2025-01-26 11:51 | disposition home or self-care (01) ==
LOC: LBN 11:50
PROVIDERS: Visit Provider Nurse Practitioner Adult Health
DX: F11.90 Opioid use, unspecified, uncomplicated (principal); F14.90 Cocaine use, unspecified, uncomplicated; R53.83 Other fatigue
CPT/HCPCS: 80307; 80348; 80360; 82565

== ENCOUNTER 2025-03-09 18:22 | Outpatient (REF) | payer MEDICAID, SELFPAY ==
[2025-03-09 23:01] LABS: Cannabinoids THC Positive (Negative)
== END 2025-03-09 18:23 | disposition home or self-care (01) ==
LOC: LBN 18:22
PROVIDERS: Visit Provider Nurse Practitioner Adult Health
DX: F11.90 Opioid use, unspecified, uncomplicated (principal); F90.9 Attention-deficit hyperactivity disorder, unspecified type
CPT/HCPCS: 80307; 80360